=== PATIENT | male | born 1975 | race Caucasian/White ===

== ENCOUNTER 2018-07-10 13:17 | Emergency (ER) | payer OTHER ==
--- NOTE | 2018-07-10 14:43 | ED PDOC ---
HPI: Psych/Substance Abuse Time Seen by Provider: 07/10/18 13:46 Chief Complaint (Nursing): Psychiatric Evaluation Chief Complaint (Provider): Psychiatric Evaluation History Per: Patient Onset/Duration Of Symptoms: Other (x1 month) Current Symptoms Are (Timing): Still Present Additional Complaint(s): 43 year old male presents to the ED complaining of feeling nervous and anxious for at least a month. Patient reports he wakes up every day feeling nervous and anxious and does not sleep well because of it. He states he is sometimes unable to go to sleep because of thoughts. Denies SOB, CP, suicidal ideation, and homicidal ideation. He indicates he does not think he is depressed. Patient reports his mother a few months ago but he believes that is not related to his anxious and nervousness. PMD: none Past Medical History Reviewed: Historical Data, Nursing Documentation, Vital Signs Vital Signs: Last Vital Signs Temp 97.8 F 07/10/18 13:19 Pulse 93 H 07/10/18 13:19 Resp 16 07/10/18 13:19 BP 160/83 H 07/10/18 13:19 Pulse Ox 98 07/10/18 13:19 - Medical History PMH: Diabetes, HTN Denies: Asthma - Surgical History Surgical History: No Surg Hx - Family History Family History: States: Unknown Family Hx - Social History Drugs: Denies - Immunization History Hx Tetanus Toxoid Vaccination: No Hx Influenza Vaccination: No Hx Pneumococcal Vaccination: No - Home Medications Home Medications: Ambulatory Orders Medication Instructions Recorded Albuterol 0.083% [Albuterol 0.083% 2.5 mg IH Q6 PRN #20 neb 11/01/15 Inhal Arlene (2.5 mg/3 ml) UD] Albuterol Sulfate [Ventolin Hfa] 0.09 mg IH Q8 PRN 11/01/15 Clarithromycin [Clarithromycin ER] 500 mg PO BID 11/01/15 Ergocalciferol [Drisdol] 50,000 iu PO QWK 11/01/15 Mask, Face [Nebulizer Aerosol Mask 1 dev XX PRN PRN #1 dev 11/01/15 Adult] Metformin Hydrochloride [Metformin] 500 mg PO BID 11/01/15 Methylcobalamin [C96-Clfino] 1,000 mcg PO DAILY 11/01/15 Montelukast Sodium [Singulair] 10 mg PO HS 11/01/15 Nebulizer [Aerosol Therapy 1 dev XX PRN PRN #1 dev 11/01/15 Nebulizer] Prednisone 2 tab PO DAILY #8 tab 11/01/15 Spacer, Inhalation [Aerochamber] 1 dev IH Q6 #1 dev 11/01/15 Albuterol 0.083% [Albuterol 0.083% 1 NEB Q6 11/06/15 Inhal Arlene (2.5 mg/3 ml) UD] Albuterol Sulfate [Albuterol 1 dose IH QID #100 arlene 11/06/15 Sulfate 2.5mg/3 ml 0.083%] Cyanocobalamin [Vitamin B12 1000 1 tab DAILY 11/06/15 mcg Tab] Ergocalciferol [Vitamin D] 50,000 iu PO QWK 11/06/15 Hydrocodone/Chlorpheniramine 5 ml PO HS PRN #75 ml 11/06/15 [Tussionex] Metformin Hydrochloride [Metformin] 500 mg PO BID 11/06/15 Prednisone 2 tab PO DAILY #14 tab 11/06/15 - Allergies Allergies/Adverse Reactions: Allergies Allergy/AdvReac Type Severity Reaction Status Date / Time No Known Allergies Allergy Verified 07/10/18 13:19 Review of Systems ROS Statement: Except As Marked, All Systems Reviewed And Found Negative Cardiovascular: Negative for: Chest Pain Respiratory: Negative for: Shortness of Breath Psych: Positive for: Anxiety, Other (Nervous). Negative for: Suicidal ideation (and homicidal ideation) Physical Exam - Reviewed Nursing Documentation Reviewed: Yes Vital Signs Reviewed: Yes - Physical Exam Appears: Positive for: No Acute Distress (Anxious). Negative for: Uncomfortable Head Exam: Positive for: ATRAUMATIC, NORMAL INSPECTION, NORMOCEPHALIC Skin: Positive for: Normal Color, Warm, Dry Eye Exam: Positive for: Normal appearance Neck: Positive for: Normal, Painless ROM Cardiovascular/Chest: Positive for: Regular Rate, Rhythm. Negative for: Murmur Respiratory: Positive for: Normal Breath Sounds. Negative for: Wheezing, Respiratory Distress Gastrointestinal/Abdominal: Positive for: Normal Exam, Soft. Negative for: Tenderness Extremity: Positive for: Normal ROM Neurologic/Psych: Positive for: Alert, Oriented (x3). Negative for: Motor/ Sensory Deficits - ECG O2 Sat by Pulse Oximetry: 98 (RA) Pulse Ox Interpretation: Normal Medical Decision Making Medical Decision Making: Initial Impression: Anxiety Differentials include bipolar disorder and adjustment disorder. Initial Plan: --Alcohol serum --Drug screen --Crisis evaluation 1643 Upon provider reevaluation patient is feeling better, is medically stable, and requires no further treatment in the ED at this time. Scribe Attestation: Documented by Travis Perez acting as a scribe for Keri Monroe MD. Provider Scribe Attestation: All medical record entries made by the Scribe were at my direction and personally dictated by me. I have reviewed the chart and agree that the record accurately reflects my personal performance of the history, physical exam, medical decision making, and the department course for this patient. I have also personally directed, reviewed, and agree with the discharge instructions and disposition. Disposition - Clinical Impression Clinical Impression: Depression - Patient ED Disposition Is Patient to be Admitted: No Doctor Will See Patient In The: Office Counseled Patient/Family Regarding: Studies Performed, Diagnosis, Need For Followup - Disposition Referrals: Audelia Burt MD [Medical Doctor] - Disposition: Routine/Home Disposition Time: 16:43 Condition: GOOD Additional Instructions: Follow up with your PCP in 2-3 days. Instructions: Depression, When You Have Depression and Another Health Problem
[2018-07-10 16:02] LABS: BARBITURATES, UR NEGATIVE (NEGATIVE); BENZODIAZEPINES, UR NEGATIVE (NEGATIVE); OPIATES, UR NEGATIVE (NEGATIVE); PHENCYCLIDINE, UR NEGATIVE (NEGATIVE)
[2018-07-10 17:11] VITALS: BP 120/78; PULSE 69; RESP 18; TEMP 98.6
[2018-07-13 15:18] VITALS: O2SAT 98
== END 2018-07-10 17:20 | disposition home or self-care (01) ==
LOC: H.ER 13:17
DX: F32.9 Major depressive disorder, single episode, unspecified (principal); E11.9 Type 2 diabetes mellitus without complications; I10 Essential (primary) hypertension; Z79.84 Long term (current) use of oral hypoglycemic drugs; F41.9 Anxiety disorder, unspecified